=== PATIENT | female | born 1995 | race Caucasian/White ===

== ENCOUNTER 2017-08-26 14:32 | Observation (INO) | payer BC ==
[2017-08-26 16:00] LABS: CHLORIDE,CL 104 mmol/L (101-111); SODIUM,NA 136 mmol/L (135-145)
--- NOTE | 2017-08-26 16:34 | EDM.PDOC ---
ED HPI GENERAL MEDICAL PROBLEM - General Chief Complaint: MANAGER CHANGE Problem Stated Complaint: 4 WKS POST PARDUM. SEVERE CRAMPS Time Seen by Provider: 08/26/17 16:20 Source of Information: Reports: Patient History Limitations: Reports: No Limitations - History of Present Illness INITIAL COMMENTS - FREE TEXT/NARRATIVE: This 21 yo female patient reports to the ED with abdominal pain and vaginal bleeding today. The patient had a uneventful vaginal delivery in [place] 4 weeks ago and has not been having any problems since the delivery. Onset: Today Duration: Constant, Getting Worse Location: Reports: Abdomen Severity: Severe Improves with: Reports: None Worsens with: Reports: None Associated Symptoms: Reports: No Other Symptoms Abdomen Pain Score (Numeric/FACES): 8 - Related Data Allergies Allergy/AdvReac Type Severity Reaction Status Date / Time codeine Allergy Nausea and Verified 08/26/17 15:54 Vomiting Home Meds: Home Meds . [No Known Home Meds] 08/26/17 [History] Past Medical History - Past Health History Medical/Surgical History: Denies Medical/Surgical History Social & Family History - Tobacco Use Smoking Status *Q: Never Smoker Second Hand Smoke Exposure: No - Caffeine Use Caffeine Use: Reports: Tea - Recreational Drug Use Recreational Drug Use: No ED ROS GENERAL - Review of Systems Review Of Systems: ROS reveals no pertinent complaints other than HPI. ED EXAM, GI/ABD - Physical Exam Exam: See Below Exam Limited By: No Limitations General Appearance: Alert, WD/WN, Severe Distress, Thin Eyes: Bilateral: Normal Appearance, EOMI Ears: Normal External Exam, Normal Canal, Hearing Grossly Normal, Normal TMs Nose: Normal Inspection, Normal Mucosa, No Blood Throat/Mouth: Normal Inspection, Normal Lips, Normal Teeth, Normal Gums, Normal Oropharynx, Normal Voice, No Airway Compromise Head: Atraumatic, Normocephalic Neck: Normal Inspection, Supple, Non-Tender, Full Range of Motion Respiratory/Chest: No Respiratory Distress, Lungs Clear, Normal Breath Sounds, No Accessory Muscle Use, Chest Non-Tender Cardiovascular: Normal Peripheral Pulses, Regular Rate, Rhythm, No Edema, No Gallop, No JVD, No Murmur, No Rub GI/Abdominal Exam: Guarding, Rigid, Tender (Female) Exam: Deferred Rectal (Female) Exam: Deferred Back Exam: Normal Inspection, Full Range of Motion, NT Extremities: Normal Inspection, Normal Range of Motion, Non-Tender, Normal Capillary Refill, No Pedal Edema Neurological: Alert, Oriented, CN II-XII Intact, Normal Cognition, Normal Gait, Normal Reflexes, No Motor/Sensory Deficits Psychiatric: Normal Affect, Normal Mood Skin Exam: Warm, Dry, Intact, No Rash, Pallor Lymphatic: No Adenopathy Course - Vital Signs Last Recorded V/S: Last Vital Signs Temp 36.8 C 08/26/17 17:22 Pulse 100 08/26/17 17:22 Resp 18 08/26/17 17:22 BP 109/63 08/26/17 17:22 Pulse Ox 99 08/26/17 16:17 - Orders/Labs/Meds Orders: Active Orders 24 hr Category Date Time Status Verify Patient Consent Obtain [RC] ASDIRECTED Care 08/26/17 17:12 Active HCG QUANTITATIVE,SERUM [CHEM] Stat Lab 08/26/17 16:48 Ordered RED BLOOD CELLS LP [BBK] Stat Lab 08/26/17 14:55 Results TYPE AND SCREEN [BBK] Stat Lab 08/26/17 14:55 Results Transfuse Red Blood Cells [COMM] Urgent Oth 08/26/17 15:42 Ordered Resuscitation Status Routine Resus Stat 08/26/17 17:12 Ordered Labs: Laboratory Tests 08/26/17 08/26/17 08/26/17 Range/Units 14:55 15:34 15:34 WBC 8.4 (5.0-10.0) 10^3/uL RBC 3.49 L (4.2-5.4) 10^6/uL Hgb 7.8 L (12.0-16.0) g/dL Hct 25.8 L (37.0-47.0) % MCV 73.9 L (80-100) fL MCH 22.3 L (27.0-34.0) pg MCHC 30.2 L (33.0-35.0) g/dL Plt Count 409 (150-450) 10^3/uL Neut % (Auto) 73.7 (42.2-75.2) % Lymph % (Auto) 18.0 L (20.5-50.1) % [place] % (Auto) 6.7 (2-8) % Eos % (Auto) 1.2 (1.0-3.0) % Baso % (Auto) 0.4 (0.0-1.0) % Sodium 136 (135-145) mmol/L Potassium 3.7 (3.6-5.0) mmol/L Chloride 104 (101-111) mmol/L Carbon Dioxide 24.0 (21.0-31.0) mmol/L Anion Gap 11.7 BUN 15 (7-18) mg/dL Creatinine 0.7 (0.6-1.3) mg/dL Est Cr Clr Drug Dosing 103.40 mL/min Estimated GFR (MDRD) > 60 BUN/Creatinine Ratio 21.42 Glucose 88 (74-105) mg/dL Calcium 9.0 (8.4-10.2) mg/dl Total Bilirubin 0.7 (0.2-1.0) mg/dL AST 20 (10-42) IU/L ALT 13 (10-60) IU/L Alkaline Phosphatase 72 (42-121) IU/L Total Protein 6.9 (6.7-8.2) g/dl Albumin 3.9 (3.2-5.5) g/dl Globulin 3.0 Albumin/Globulin Ratio 1.30 Blood Type O POSITIVE Gel Antibody Screen Negative Crossmatch See Detail Meds: Medications Discontinued Medications Generic Name Dose Route Start Last Admin Trade Name Freq PRN Reason Stop Dose Admin Cefazolin Sodium 2 gm 08/26/17 17:30 Ancef IVPUSH 08/26/17 17:31 ONETIME ONE Cefazolin Sodium/Dextrose 2 gm 50 mls @ 100 mls/hr 08/26/17 17:12 / Premix IV 08/26/17 17:41 ONETIME ONE Departure - Departure Time of Disposition: 18:04 Disposition: Admitted As Inpatient 64 Condition: Serious Clinical Impression: Retained products of conception - Discharge Information Forms: ED Department Discharge Care Plan Goals: Discussed the examination, history, ultrasound results and lab results with Dr. Klein. Dr. Klein accepted the patient for continued evaluation and further management at [facility]. - My Orders Last 24 Hours: My Active Orders 08/26/17 14:55 RED BLOOD CELLS LP [BBK] Stat TYPE AND SCREEN [BBK] Stat 08/26/17 15:42 Transfuse Red Blood Cells [COMM] Urgent 08/26/17 16:48 HCG QUANTITATIVE,SERUM [CHEM] Stat - Assessment/Plan Last 24 Hours: My Active Orders 08/26/17 14:55 RED BLOOD CELLS LP [BBK] Stat TYPE AND SCREEN [BBK] Stat 08/26/17 15:42 Transfuse Red Blood Cells [COMM] Urgent 08/26/17 16:48 HCG QUANTITATIVE,SERUM [CHEM] Stat
[2017-08-26] MEDS ORDERED: ceFAZolin 2 GM in Premix Bag 1 BAG IV ONE (17:12)
[2017-08-26] MEDS ORDERED: ceFAZolin 1 GM Vial IVPUSH ONE (17:30)
[2017-08-26] MEDS ORDERED: Oxytocin/Normal Saline 30 UNIT/500 ML BAG ONE (18:40)
[2017-08-26] MEDS ORDERED: Methylergonovine 0.2 MG/1 ML Amp ONE (19:02)
[2017-08-26] MEDS ORDERED: Methylergonovine 0.2 MG/1 ML Amp IM PRN (19:10)
[2017-08-26] MEDS ORDERED: Acetaminophen/HYDROcodone 325-5 MG Tab PO PRN (19:23)
[2017-08-26] MEDS ORDERED: Ondansetron 4 MG/2 ML SDV IVPUSH PRN (19:23)
[2017-08-26] MEDS ORDERED: Propofol 200 MG/20 ML SDV IV ONE (21:49)
[2017-08-26] MEDS ORDERED: Oxytocin/Normal Saline 30 UNIT/500 ML BAG IV ONE (21:49)
[2017-08-26] MEDS ORDERED: Methylergonovine 0.2 MG/1 ML Amp IV ONE (21:49)
[2017-08-26] MEDS ORDERED: Glycopyrrolate 0.2 MG/ML 2 ML SDV IV ONE (21:49)
[2017-08-26] MEDS ORDERED: Midazolam 1 MG/ML 2 ML SDV IV ONE (21:49)
[2017-08-26] MEDS ORDERED: Lactated Ringers 1,000 ML IV ONE ×2 (21:49)
[2017-08-26] MEDS ORDERED: fentaNYL 100 MCG/2 ML SDV IV ONE (21:49)
[2017-08-26] MEDS ORDERED: Dexamethasone 4 MG/ML SDV IV ONE (21:49)
[2017-08-26] MEDS ORDERED: Ondansetron 4 MG/2 ML SDV IV ONE (21:49)
--- NOTE | 2017-08-27 01:01 | HP ---
LOCATION: [facility]. HISTORY OF PRESENT ILLNESS: A 21-year-old, G2, P2, who had a vaginal delivery in [place] on 07/26/2017. Baby weighed 6 pounds 1 ounce. No complications. Unfortunately last night, this patient had severe vaginal bleeding and cramping and did present to the emergency room, where she was found to be quite anemic. OBSTETRIC HISTORY: She has had 2 vaginal deliveries. GYNECOLOGIC HISTORY: No abnormal Paps. No STDs. PAST MEDICAL HISTORY: Negative. PAST SURGICAL HISTORY: Negative. SOCIAL HISTORY: The patient does not smoke. ALLERGIES: She has an intolerance to codeine. PHYSICAL EXAMINATION: Vital Signs: The patient is afebrile. Heart rate 67 to 76, blood pressure 110 to 111 over 62 to 78, respiratory rate 16, O2 sat 99%. Lungs: Clear to auscultation bilaterally. Heart: Had a regular rate and rhythm. LABORATORY DATA: CBC showed low white count of 8.4, but hemoglobin is significantly low at 7.8. Chem 20 was normal. Ultrasound does show a definite area suspicious for retained products of conception, and there was significant blood in the vagina and on the perineum. ASSESSMENT AND PLAN: A 21-year-old, G2, P2, roughly 4 weeks from a vaginal delivery with what definitely appears to be retained products of conception. Emergency room physician has already started a transfusion, and we will proceed with a suction D and C. Consents were signed, and orders written up here shortly. [facility] /[id number] [facility]
[2017-08-27] MEDS ORDERED: Oxytocin/Normal Saline 30 UNIT/500 ML BAG IV SCH (14:30)
--- NOTE | 2017-08-29 09:48 | OR ---
DATE: 08/26/2017 PREOPERATIVE DIAGNOSIS: This is an individual status post roughly 4 weeks from a vaginal delivery with retained products of conception. POSTOPERATIVE DIAGNOSIS: This is an individual status post roughly 4 weeks from a vaginal delivery with retained products of conception. PROCEDURE: Suction D and C. ASSISTANTS: There were no assistance. ANESTHESIA: General. FINDINGS: There was roughly 3-4 cm piece of placenta, which was removed. ESTIMATED BLOOD LOSS: 200 mL. PROCEDURE IN DETAIL: The patient was seen in the emergency room earlier that afternoon when she was having severe cramping and heavy vaginal bleeding, also significant anemia with a hemoglobin 7.8. The ER physician did start 2 units of packed red blood cells. She consented to D and C. She was taken to the operating room, where she was prepped and draped in normal sterile fashion with her legs in the Rommel stirrups. Weighted speculum was placed in the vagina. Cervix was grasped with a tenaculum. The cervix was significantly dilated. The 12 mm suction was placed and a large chunk of placenta was brought out of the uterus. That was sent to pathology. Suction was replaced 1 more time. There were no more products of conception. The curette was then used to create a gritty texture to the entire uterus. Unfortunately though, the patient did continue to have some bleeding. Methergine was given, when that did not help, then third stage Pitocin was also given. At that point in time, the bleeding did slow significantly. The weighted speculum was removed. Single-tooth tenaculum was removed. The patient tolerated the procedure well. Sponge, lap, needle counts were all correct x2. The patient was taken to the recovery room where the 2nd unit of blood was completed. By later in the evening, she was having no more cramping, very normal bleeding, and felt much better. Therefore she was discharged to home. [facility] /[id number]
== END 2017-08-26 21:50 | disposition home or self-care (01) ==
LOC: DL.SDS 14:32 → DL.MS 19:24
PROVIDERS: ADMIT Obstetrics & Gynecology; ATTEND Obstetrics & Gynecology
PROC: 10D17ZZ Extraction of Products of Conception, Retained, Via Natural or Artificial Opening (ICD-10-PCS; principal; 2017-08-26)
DX: O90.81 Anemia of the puerperium (principal); O90.89 Other complications of the puerperium, not elsewhere classified; D64.9 Anemia, unspecified; Z88.5 Allergy status to narcotic agent
CPT/HCPCS: 36415; 36430; 59160; 76830; 80053; 84702; 85025; 86850; 86900; 86901; 86920; 86922; 99285; J0690; J1100; J2210; J2250; J2405; J2590; J2704; J3010; J7120; P9016; J3490

== ENCOUNTER 2018-09-09 19:36 | Observation (INO) | payer BC ==
[2018-09-09] MEDS ORDERED: Betamethasone Acetate/Betamethasone Sod Phosphate 30 MG/5 ML MDV IM ONE (19:59)
[2018-09-09] MEDS ORDERED: Lactated Ringers 1,000 ML IV ONE (19:59)
[2018-09-09] MEDS: Terbutaline 1 MG/ML SDV SUBCUT SCH ×2 (20:10→20:48)
[2018-09-09] MEDS: Lactated Ringers 1,000 ML IV SCH (20:45)
[2018-09-10] MEDS ORDERED: Terbutaline 1 MG/ML SDV SUBCUT PRN (02:53)
[2018-09-10] MEDS: Terbutaline 1 MG/ML SDV SUBCUT SCH (02:56)
[2018-09-10] MEDS: Lactated Ringers 1,000 ML IV SCH (06:40)
== END 2018-09-10 11:00 | disposition home or self-care (01) ==
LOC: DL.OBCHECK 19:36 → DL.OB 21:12 → UNDOADMOB 21:12
PROVIDERS: ADMIT Obstetrics & Gynecology; ATTEND Obstetrics & Gynecology
DX: O47.1 False labor at or after 37 completed weeks of gestation (principal); Z88.5 Allergy status to narcotic agent
CPT/HCPCS: 36415; 81001; 85027; 87086; 87088; 87186; J0702; J3105; J7120; 96360; 96361; 96372; G0378